=== PATIENT | female | born 1970 | race Caucasian/White ===

== ENCOUNTER 2022-08-17 10:48 | Day surgery (SDC) | payer MEDICAID ==
[~2022-08-17] VITALS: Ht 144.8 cm; Wt 51.7 kg
[2022-08-17 11:24] LABS: HCG,QUAL RESULT NEGATIVE (NEGATIVE)
[2022-08-17] MEDS ORDERED: LR 1,000 ML IV.SOLN IV ONE (13:15)
[2022-08-17] MEDS ORDERED: NS IRRIG SOLN 1000 ML IR ONE (13:15)
[2022-08-17] MEDS ORDERED: NS 1000 ML IV.SOLN IV ONE (13:15)
[2022-08-17] MEDS ORDERED: PROPOFOL 200MG/ 20ML VIAL (DIPRIVAN) IV ONE (13:15)
[2022-08-17] MEDS ORDERED: SEVOFLURANE 15 MIN GAS INH ONE (13:15)
[2022-08-17 16:05] VITALS: BP_SYST 153
== END 2022-08-17 15:20 | disposition home or self-care (01) ==
LOC: SDS 10:48 → SMU 10:49 → SDS 15:20
PROVIDERS: ATTEND Obstetrics & Gynecology
DX: N92.0 Excessive and frequent menstruation with regular cycle (principal); D25.1 Intramural leiomyoma of uterus; Z79.899 Other long term (current) drug therapy; Z20.822 Contact with and (suspected) exposure to COVID-19
CPT/HCPCS: 58558; 84703; 36415; 88305; 87426; J2704; J7120; J7030